=== PATIENT | female | born 1960 | race Caucasian/White ===

== ENCOUNTER 2016-12-06 18:03 | Emergency (ER) | payer MEDICAID ==
[2016-12-06 20:49] LABS: BASOPHIL % 0.4 % (0-2); PLATELET COUNT 232 x10^3mcL (130-400); RED CELL DISTRIBUTION WIDTH 12.9 % (11.5-14.5)
[2016-12-06 20:58] LABS: CALCIUM 9.4 mg/dL (8.5-10.1); CARBON DIOXIDE 31.7 mmol/L (21-32); CHLORIDE SERUM 102 mmol/L (98-107); CREATININE SERUM 0.9 mg/dL (0.6-1.0); GFR1 > 60 mL/min; GLUCOSE SERUM 105 mg/dL (74-106); POTASSIUM SERUM 3.8 mmol/L (3.5-5.1); SODIUM SERUM 139 mmol/L (136-145)
[2016-12-06 21:03] LABS: ALBUMIN 4.1 g/dL (3.4-5.0); ALKALINE PHOSPHATASE 126 U/L (46-116); ALT/SGPT 29 U/L (14-59); AST/SGOT 21 U/L (15-37); BILIRUBIN TOTAL 0.81 mg/dL (0.20-1.00); LIPASE 145 IU/L (73-393)
[2016-12-06 21:04] LABS: TOTAL PROTEIN, SERUM 8.6 g/dL (6.4-8.2)
[2016-12-06 22:49] VITALS: BP 154/86
== END 2016-12-06 22:49 | disposition home or self-care (01) ==
LOC: ED 18:03
PROVIDERS: Emergency Medicine
DX: E86.0 Dehydration (principal); I10 Essential (primary) hypertension; E78.00 Pure hypercholesterolemia, unspecified
CPT/HCPCS: J7030